=== PATIENT | female | born 1990 | race Caucasian/White ===

== ENCOUNTER 2017-08-29 22:37 | Inpatient (IN) | payer OTHER ==
[~2017-08-29] VITALS: Ht 165.1 cm; Wt 84.5 kg
[2017-08-30] MEDS ORDERED: ASMANEX HFA13 GM (00:33)
[2017-08-30] MEDS ORDERED: VENTOLIN HFA18 GM (00:33)
[2017-08-30] MEDS ORDERED: PROAIR HFA8.5 GM (00:34)
[2017-08-30] MEDS ORDERED: ADVIL200 M1 PO (00:34)
[2017-08-30] MEDS ORDERED: ALLEGRA ALLERG180 MG PO (00:35)
[2017-08-30] MEDS ORDERED: MELATONIN5 M2 PO (00:36)
[2017-08-30] MEDS ORDERED: NASAL SPRAY30 M1 NAS (00:36)
[2017-08-30] MEDS ORDERED: AFRIN15 ML (00:37)
[2017-08-30] MEDS ORDERED: EYE DROPS15 ML (00:38)
[2017-08-30] MEDS ORDERED: OPCON-A EYE DRO15 ML (00:38)
--- NOTE | 2017-08-30 01:45 | NUR ---
PT ARRIVED VIA STRETCHER DIRECT ADMIT FROM [place], TRANSPORTED VIA AMBULANCE. PT IS ALERT, COMPLAINS OF SEVERE HEADACHE AND LEG PAIN. LUNGS CLEAR, RA. HR REGULAR. BOWEL TONES ACTIVE, DENIES NAUSEA, STATES ABDOMEN IS TENDER. SKIN INTACT, STATES SHE HAS A RASH TO HER BACK, BUT I WAS UNABLE TO SEE IT. NEW 20G IV PLACED IN RIGHT WRIST, PT TOLERATED WELL. 1L LR BOLUS STARTED. CIWA: 15, 5MG PO VALIUM ADMINISTERED. PT INSTRUCTED TO USE CALL LIGHT, PT IS IN VIEW OF NURSES' STATION AND CALL LIGHT IS WITHIN REACH. PT APPLYING MAKEUP AND WATCHING TV, WILL CONTINUE TO MONITOR. DR. FAM IN TO ASSESS PT AND DISCUSS PLAN OF CARE.
--- NOTE | 2017-08-30 01:50 | NUR ---
PT ARRIVED VIA STRETCHER DIRECT ADMIT FROM [place], TRANSPORTED VIA AMBULANCE. PT IS ALERT, COMPLAINS OF SEVERE HEADACHE AND LEG PAIN. LUNGS CLEAR, RA. HR REGULAR. BOWEL TONES ACTIVE, DENIES NAUSEA, STATES ABDOMEN IS TENDER. SKIN INTACT, STATES SHE HAS A RASH TO HER BACK, BUT I WAS UNABLE TO SEE IT. NEW 20G IV PLACED IN RIGHT WRIST, PT TOLERATED WELL. 1L LR BOLUS STARTED. CIWA: 15, 5MG PO ATIVAN ADMINISTERED. PT INSTRUCTED TO USE CALL LIGHT, PT IS IN VIEW OF NURSES' STATION AND CALL LIGHT IS WITHIN REACH. PT APPLYING MAKEUP AND WATCHING TV, WILL CONTINUE TO MONITOR.
--- NOTE | 2017-08-30 02:39 | NUR ---
IN TO REASSESS PT AND SHE IS CURRENTLY SLEEPING, NO APPARENT DISTRESS. RR:19 SPO2: 92% ON RA. HR:91. WILL CONTINUE TO MONITOR.
--- NOTE | 2017-08-30 04:30 | NUR ---
PT CURRENTLY SLEEPING, NO APPARENT DISTRESS. RESPIRATIONS EVEN/UNLABORED, RRl 16 SPO2: 96% ON RA. HR: 80S. IV INFUSING WNL. WILL CONTINUE TO MONITOR.
--- NOTE | 2017-08-30 05:30 | NUR ---
LAB IN TO DRAW SAMPLE, PT WOKE VERY CONFUSED, DID NOT KNOW WHERE SHE WAS. CIWA: 19, PO VALIUM ADMINISTERED. ASSESSMENT COMPLETED. PT FORGETFUL, NEEDS FREQUENT REMINDERS OF WHERE SHE IS. REPORTS 4/10 PAIN IN LEGS AND HEADACHE. LUNGS REMAIN CLEAR, RA. HR REGULAR. BOWEL TONES ACTIVE, DENIES NAUSEA. IV INFUSING WNL. BED ALARM SET FOR SAFETY, WILL CONTINUE TO MONITOR.
--- NOTE | 2017-08-30 06:00 | NUR ---
PT ANXIOUS, TRYING TO EXIT BED STATING "I NEED TO GET MY SON." REASSURED PT THAT HER SON IS WITH HER MOM, PER WHAT SHE TOLD ME LAST NIGHT. CIWA:16, IV VALIUM GIVEN. WILL CONTINUE TO MONITOR. BED ALARM ON FOR SAFETY.
--- NOTE | 2017-08-30 06:04 | NUR ---
PT ANXIOUS, TRYING TO EXIT BED STATING "I NEED TO GET MY SON." REASSURED PT THAT HER SON IS WITH HER MOM, PER WHAT SHE TOLD ME LAST NIGHT. CIWA:16, IV ATIVAN GIVEN. WILL CONTINUE TO MONITOR.
--- NOTE | 2017-08-30 07:05 | NUR ---
REASSESSED PT, CIWA: 13, PO VALIUM ADMINISTERED.
--- NOTE | 2017-08-30 07:40 | NUR ---
PT AWAKENED YELLING AND THASING IN BED, STATES "BUGS ARE CRAWELING ON ME" PT MEDICATED WITH 5MG VALIUM IV AT THIS TIME. DR FAM NOTIFIED ALSO. NO NEW ORDERS.
--- NOTE | 2017-08-30 08:03 | NUR ---
PT DOES NOT LIKE THE BLOOD PRESSURE NOW C/O NAUSEA MEDICATED WITH 4MG ZOFRAN. PT VERY TEARFUL AT THIS TIME.
--- NOTE | 2017-08-30 08:29 | NUR ---
PT TALKING ON PERSONAL CELL PHONE AT THIS TIME, REMAINS VERY TEARFUL, AND UPSET WITH THIS PROCESS. SHE STATES SHE HAS BEEN DRINIKNG A FIFTH A DAY FOR THE LAST TWO YEARS. SHE JUST MOVED TO HER CURRENT RESIDENTS FROM [facility]. SHE WANTS TO GO SEE HER SON WHO IS CURRENTLY WITH HER MOTHER. UNSURE WHERE THAT IS THOUGH.
--- NOTE | 2017-08-30 09:05 | NUR ---
PT UP TO THE BATHROOM AT THIS TIME. AMBULATES WELL, STAFF TO MANGE IV LINES AND OTHER CORDS. PT AMBULATED IN THE UNIT TO ROOM 126 TO ROOM 130 AND BACK TO HER ROOM. SOME BROTH GIVEN TO PT TO SIP ON ALSO AT THIS TIME. BED ALARM INPLACE.
--- NOTE | 2017-08-30 09:18 | NUR ---
PT BACK TO BED DRINKING BROTH AT THIS TIME. AT TIMES APPEARS TO BE CRYING, BUT THEN WILL CHANGE THE SUBJECT AND START TALKING ABOUT SOMETHING ELSE.
--- NOTE | 2017-08-30 09:56 | NUR ---
PT MEDICATED WITH 650MG TYLENOL FOR BURNS 8 AT THIS TIME. PT TRYING TO SLEEP.
--- NOTE | 2017-08-30 10:30 | NUR ---
SPOKE WITH PATIENT IN ROOM. PATIENT AWAKE, USING CELL PHONE. PATIENT IS VISIBLY SHAKEY. PATIENT STATES SHE WAS IN MENTAL HEALTH TREATMENT DUE TO SELF HARM THOUGHTS. SHE STATES SHE MIGHT HAVE TO GO TO [place], BUT IS UNSURE WHERE SHE WILL BE GOING NEXT.
--- NOTE | 2017-08-30 10:35 | NUR ---
pt sleeping at this time.
--- NOTE | 2017-08-30 11:00 | NUR ---
PT REMAINS ASLEEP AT THIS TIME, AWAKES WITH STARTLE REFLEXS WHEN STAFF ENTER THE ROOM.
--- NOTE | 2017-08-30 11:24 | NUR ---
pt up to the bathroom understeady on her feet, two person assistance, back to bed with one paerson assistance. 5mg po valium given for withdrawel symptoms.
--- NOTE | 2017-08-30 11:27 | NUR ---
DR FAM NOTIFIED OF INCREASED SWELLING OF FACE AND HANDS R/T IV FLUIDS. NEW ORDER TO DECREASE FLUIDS TO 65MLS/HR AT THIS TIME.
--- NOTE | 2017-08-30 11:55 | NUR ---
PT ASLEEP AWAKENS WHEN SPOKEN TOO, ASSESSMENT COMPLETED AT THIS TIME SIDE RAILS X 2, BED ALARM ON, ACROSS FROM NURSES STATION.
--- NOTE | 2017-08-30 12:28 | NUR ---
PT IS C/O ABD CRAMPING AT THIS TIME TEARFULL ALSO AT THIS TIME. OFFERED BROTH AND SOME JELLO AT THIS TIME. PT SITTING UP IN BED TRYING TO EAT AT THIS TIME. HEART RATE DOES INCREASE WITH ACTIVITY.
--- NOTE | 2017-08-30 12:39 | NUR ---
PT REMAINS TEARFUL AND HAVING INCREASED ANXIETY AT THIS TIME. MEDICATED WITH 5MG PO VALIUM AND 400MG ADIVL FOR BURNS. PT SITTING UP IN BED AT THIS TIME.
--- NOTE | 2017-08-30 12:59 | NUR ---
PT UP IN ROOM CRYING, STATES "CANT YOU JUST GIVE ME SOME MEDICATION TO PUT ME TO SLEEP THROUGH THIS." DR FAM CALLED AND TO ROOM.
--- NOTE | 2017-08-30 13:18 | NUR ---
DR FAM INTO SEE PT DUE TO INCREASED ANXIETY. NEW ORDERS, PT UP TO THE BATHROOM VOIDED AND BACK TO BED. PT THEN MEDICATED WITH VALIUM 20MG IVP AT THIS TIME. PT HAS SETTLED DOWN, TALKING WITH PATHOLOGY TECHNOLOGIST ABOUT SON AND WITHDRAWEL. "I WANT TO SEE MY SON, I WAN TO HOLD HIM" ASKED HER IF IT IS GOOD FOR HIM TO SEE HER LIKE THIS? "NO PROBLE NOT" ASKED IF SHE WOULD STAY AND LET US HELP HER GET THROUGH THIS. 13:21 PT HAS STOPED CRYING AND APPEARS MORE RELAXED. HEART RATE HAS DECREASED INTO 80-90'S AND O2 SAT'S 95% AT THIS TIME ON ROOM AIR. PT SORRY FOR BEING DIFFECULT, EXPLAINED THAT IT IS THE PROCESS AND SHE IS JUST FINE. 13:22 PT APPEARS TO BE SETTLED DOWN AND RESTING IN BED WITH HER EYES CLOSED.
--- NOTE | 2017-08-30 14:22 | NUR ---
AFTER VISITING WITH ARLYN YAÑEZ, WE FELT IT BEST TO LET PT SLEEP. SHE IS STRUGGLING NOW-REST IS HELPFUL GOD BLESS HER
--- NOTE | 2017-08-30 14:28 | NUR ---
PT UP TO THE BATHROOM AT THIS TIME VOID AND THEN BACK TO BED. PT BURNS HAS DECREASED AND LESS ANXIETY NOTED AT THIS TIME. HEART RATE REMAINS IN THE 80'S AT THIS TIME. PT TALKING ABOUT SMOKING, ENCOURAGE TO RELAX AND THAT SHE IS WEARING A PATCH.
--- NOTE | 2017-08-30 14:41 | NUR ---
PT IN BED TEXTING ON HER PERSONAL PHONE AT THIS TIME.
--- NOTE | 2017-08-30 16:30 | NUR ---
pt talking on phone to family at this time, she appears to have less anxiety at this time, and is able to hold it together. no crying or hyperventalation noted after the phone call. Pt was given jello, chicken broth and some diet lemon [place] soda also at this time.
--- NOTE | 2017-08-30 17:07 | NUR ---
PT UP TO BATHROOM AMBULATED WELL, SPONGE BATH COMPLETED WITH ORAL CARE. PT ABLE TO CARE ON HER OWN. LINE CHANGED AND FRESH GROWN INPLACE.
--- NOTE | 2017-08-30 17:37 | NUR ---
PT CONTIOUES TO BE TEARFUL AT TIMES, WANTS TO SEE HER SON. BUT WHEN STAFF TALK WITH HER SHE DOES BETTER AND UNDERSTANDS HER COURSE OF [place]. SITTING UP IN BED WATCHING TV AT THIS TIME, CONTIOUES TO BE WORKING ON HER DRINKS.
--- NOTE | 2017-08-30 18:15 | NUR ---
pt contioues to c/o dukes, and leg cramping. advil 400mg po given for this pain. pt has placed fresh make-up to face at this time. pt appears to be relaxed at this time.
--- NOTE | 2017-08-30 18:47 | NUR ---
PT C/O LEGS HURTING, BUT NOT CRAMPING PLACED SCD'S ON BOTH LEGS TO SEE IF THIS WOULD HELP. PT IS TIRED, BUT DOING BETTER WITH THE HOSPITAL ROUTINE. SHE IS COOPERATIVE WITH STAFF AND ALL THE LINES AND TUBES. SHE HAS HAD A FAIR DAY TODAY.
--- NOTE | 2017-08-30 19:18 | NUR ---
pt up to the bathroom voided and back to bed. scd's inplace pt feels they help with her leg pain. Pt tearful also at this time.
--- NOTE | 2017-08-30 20:01 | NUR ---
PT SITTING UP IN BED, TEARFUL, APPEARS ANXIOUS. REPORTS 9/10 HEADACHE AND GENERALIZED PAIN, PRN TYLENOL ADMINISTERED. CIWA: 17, SCHEDULED IV VALIUM ADMINISTERED. LUNGS CLEAR, RA. HR REGULAR. BOWEL TONES ACTIVE, REPORTS MILD TENDERNESS IN ABDOMEN, DENIES NAUSEA. SKIN INTACT, REPORTS ITCHING, NO RASH OBSERVED. CMS INTACT, DENIES NUMBNESS. GENERALIZED EDEMA PRESENT IN FACE, HANDS, AND FEET. SCD'S IN PLACE. IV X2, PATENT. VSS. CHICKEN BROTH PROVIDED PER REQUEST. CALL LIGHT IS WITHIN REACH, PT IN VIEW OF NURSES' STATION. WILL CONTINUE TO MONITOR.
--- NOTE | 2017-08-30 20:58 | NUR ---
PT REQUESTED TO SHOWER, SALINE LOCKED AND COVERED IV SITES. PT SHOWERED AND RETURNED TO ROOM. ASKS IF SHE FEELS BETTER, SHE STATES "NO, I JUST FEEL CLEAN." VSS. CIWA:15. 10MG IV VALIUM ADMINISTERED. PT RESTING IN BED WATCHING TV. WILL CONTINUE TO MONITOR.
--- NOTE | 2017-08-30 21:20 | NUR ---
PATIENT UP PACING IN ROOM AND WANTING A CIGARETTE. PATIENT WANTING TO GO OUTSIDE AND SMOKE. PT VERY TEARFUL. PT'S HEART RATE UP TO 120s. PT PULLING SCDs OFF. PATIENT AGREEABLE THROUGH SOME MORE COMMUNICATION TO TAKE A LOZENGE. PT DISLIKES THE TASTE OF THESE LOZENGES. PATIENT GIVEN 10 MG IV VALIUM PER CIWA SCALE. CONTINUE TO MONITOR.
--- NOTE | 2017-08-30 21:50 | NUR ---
PT CONTINUES TO APPEAR AGITATED, TEARFUL. WANTS TO GO OUTSIDE FOR A CIGARETTE. CIWA: 23, 10MG IV VALIUM ADMINISTERED PER ORDER. PRN COMPAZINE GIVEN FOR ABDOMINAL DISCOMFORT. DR. FAM CALLED AND UPDATED ON PT'S INCREASED AGITATION. NEW ORDERS ENTERED BY DR. FAM. ONE TIME DOSE OF 130MG IV PHENOBARBITAL ADMINISTERED PER ORDER. PT NOW SLEEPING, RESPIRATIONS EVEN/UNLABORED, RR:18. IV IN RIGHT WRIST APPEARED SWOLLEN, D/C'D, CATHETER TIP INTACT. NEW 20G IV PLACED IN RIGHT FOREARM BY ARLYN RYDER, PT SLEEPING, WOKE AND SAID "OUCH!" WHEN PUNCTURED WITH NEEDLE, THEN RETURNED TO SLEEP. PT CONTINUES TO REST COMFORTABLY, WILL CONTINUE TO MONITOR.
--- NOTE | 2017-08-30 23:23 | NUR ---
PT CONTINUES TO REST COMFORTABLY. RESPIRATIONS EVEN AND UNLABORED, RR:22, SPO2:96% ON RA. HR:80. WILL CONTINUE TO MONITOR.
--- NOTE | 2017-08-31 00:10 | NUR ---
PT SLEEPING, RASS: -3. LUNGS CLEAR, RA. HR REGULAR. IV INFUSING WNL. WILL CONTINUE TO MONITOR.
--- NOTE | 2017-08-31 02:00 | NUR ---
RASS: -3. SCHEDULED VALIUM AND PHENOBARBITAL HELD AT THIS TIME. RESPIRATIONS EVEN AND UNLABORED, RR: 20. WILL CONTINUE TO MONITOR.
--- NOTE | 2017-08-31 04:29 | NUR ---
PT WOKEN UP SO THAT SHE COULD TRY TO VOID SINCE SHE HAS NOT GONE SINCE THE START OF SHIFT. PT WOKE EASILY, CONFUSED ABOUT WHERE SHE IS. AMBULATED TO BATHROOM AFTER SOME ENCOURAGEMENT TO GET UP. VOIDED 350ML OF CONCENTRATED URINE AND RETURNED TO BED. PT APPEARS ANXIOUS, REPORTS 5/10 HEADACHE, PRN ADVIL GIVEN. RASS: +1, PRN PHENOBARBITAL GIVEN PER ORDER. ASSESSMENT COMPLETED. LUNGS CLEAR, RA. HR REGULAR. PT DENIES NAUSEA. IV INFUSING WNL. WILL CONTINUE TO MONITOR.
--- NOTE | 2017-08-31 06:23 | NUR ---
PT SLEEPING, NO APPARENT DISTRESS. RESPIRATIONS EVEN/UNLABORED, RR:13. SPO2:98% ON RA. HR:72. WILL CONTINUE TO MONITOR.
--- NOTE | 2017-08-31 08:17 | NUR ---
PT AWAKE AND ALERT. VITAL SIGNS AND ASSESSMENT COMPLETED. PT C/O OF HEADACHE AND GENERALIZED DISCOMFORT. STATES "MY BODY HURTS ALL OVER". PT REFUSED TYLENOL FOR HER HEADACHE STATES "IT WILL NOT WORK FOR ME". PT WATCHING TV AND TEXTING ON HER PHONE.
--- NOTE | 2017-08-31 09:00 | NUR ---
PT AMBULATED TO BATHROOM WITH MINIMAL ASSIST. VOIDED BUT MISSED THE HAT, UNABLE TO MEASURE AT THIS TIME. PT RETUNED TO BED WITH HOB ELEVATED.
--- NOTE | 2017-08-31 09:10 | NUR ---
PT TAKING SMALL AMOUNTS OF CLEAR LIQ DIET. STATES "THIS TASTES LIKE CRAP".
--- NOTE | 2017-08-31 10:24 | NUR ---
DR. FAM IN TO ASSESS PT, PT STATES "I WANT TO HAVE A CIGARETTE, I DON'T CARE IF YOU DON'T WANT ME TO, I WILL HAVE ONE". DR. FAM TRIED SEVERAL TIMES TO EXPLAIN WHY PT CAN NOT SMOKE IN THE HOSPITAL BUT PT REFUSED TO TAKE THIS FOR AN ANSWER. PT STATES "YOU'D BETTER GIVE ME SOMETHING OR I WILL GO OFF." PT ALSO STATES "I WANT FOOD AND I WANT A CIGARETTE!" PT CRYING AND MEDICATED WITH VALIUM 20 MG IV. AimWith NOTIFIED AND LUNG GUN OPERATOR WILL BE HERE TO EVALUATE PT.
--- NOTE | 2017-08-31 10:51 | NUR ---
COMPUTER PUBLISHER CALLED AND WILL BE IN WITHIN AN HOUR.
--- NOTE | 2017-08-31 10:53 | NUR ---
LUNCH GIVEN TO PT BUT SHE REFUSED TO EAT. STATES "THAT LOOKS LIKE SOMETHING I SHIT." LUNCH TRY REMOVED.
--- NOTE | 2017-08-31 11:40 | NUR ---
JAVA TECHNICAL ARCHITECT AALIYAH HERE TO EVALUATE PT.
--- NOTE | 2017-08-31 12:19 | NUR ---
PT WITH INCREASED ANXIETY, CRYING AND PACING THE FLOOR,MANAGER CUSTOMER SERVICE WITH PT. MEDICATED WITH VALIUM 20 MG IV. MANAGER CUSTOMER SERVICE FROM [facility] CALLED TO TALK TO PT.
--- NOTE | 2017-08-31 12:51 | NUR ---
PT CONTINUES TO PACE THE FLOOR.
--- NOTE | 2017-08-31 13:29 | NUR ---
DISCHARGE INSTRUCTIONS GIVEN. PT REFUSED TO SIGN THAT DISCHARGE PAPERS WERE GIVEN. IV'S DC'D WITH CATHETERS INTACT. PT DRESSING SELF. BISCUIT FACTORY WORKER AWARE THAT PT IS DISCHARGED.
--- NOTE | 2017-08-31 13:54 | NUR ---
PT DISCHARGED WITH BELONGINGS AND AMBULATED WITH WOOD CUT ENGRAVER TO LOBBY TO WAIT FOR HER RIDE.
--- NOTE | 2017-08-31 16:40 | NUR ---
AFTER PT DISCHARGED FROM THE HOSPITAL IN CARE OF [facility] PROVIDER, PT LEFT FACILTIY. [facility] PROVIDER, AALIYAH, CALLED POLICE. POLICE BROUGHT PT BACK TO HOSPITAL, PT IN HANDCUFFS IN PARKING LOT. PT RELEASED FROM HANDCUFFS AND WHEN [place] INSPECTOR ASKED HER TO REMAIN RESPECTFUL, PATIENT STATES, "ARE YOU GOING TO BE A FUCKING MARCIE." [place] INSPECTOR REMAINED CALM AND SPOKE WITH HER UNTIL [facility] PROVIDER RETURNED. PLAN WAS MADE FOR CARE OF PT TO BE TAKEN OVER BY [facility], AND FOR PT TO CHECK BACK INTO ER FOR MEDICAL SCREEN. PT IS UNCOOPERATIVE WITH STAFF AND POLICE. PTS FAMILY ARRIVED ON SCENE, WELL PTS SON, AT WHICH TIME PT BECAME MUCH LESS AGITATED. PT CURRENTLY IN QUIET ROOM OF HOSPITAL WITH CAHRU SEQUEIRA FROM [facility]. PLEASE SEE ER CHARTING FOR FURTHER CARE OF PT.
== END 2017-08-31 13:35 | disposition home or self-care (01) | DRG 897 ==
LOC: CCU 22:37
PROVIDERS: ADMIT Internal Medicine
DX: F10.230 Alcohol dependence with withdrawal, uncomplicated (principal); F41.9 Anxiety disorder, unspecified; F32.9 Major depressive disorder, single episode, unspecified; Z91.5 Personal history of self-harm; F17.210 Nicotine dependence, cigarettes, uncomplicated
CPT/HCPCS: 36415; 80048; 83735; 90674; G0008; J0780; J2405; J2560; J3360; J7120

== ENCOUNTER 2017-08-31 17:21 | Emergency (ER) | payer OTHER ==
[~2017-08-31] VITALS: Ht 165.1 cm; Wt 81.7 kg
[~2017-08-31 17:21] MED LIST: ADVIL200 M1 PO; AFRIN15 ML; ALLEGRA ALLERG180 MG PO; ASMANEX HFA13 GM; EYE DROPS15 ML; MELATONIN5 M2 PO; NASAL SPRAY30 M1 NAS; OPCON-A EYE DRO15 ML; PROAIR HFA8.5 GM; VENTOLIN HFA18 GM
--- NOTE | 2017-09-02 00:37 | EKG ---
[facility] [address] [place] [address] Signed Normal sinus rhythm Normal ECG No previous ECGs available Confirmed by ELBERT FAM MD ([id number]) on 09/02/2017 12:37:00 AM Electronically Signed By: ELBERT FAM MD 09/02/17 0037 PATIENT NAME: SULEMA BALDWIN Electrocardiogram DATE OF : 86 PHYSICIAN: ELBERT FAM MD REPORT #: [id number] REPORT IS CONFIDENTIAL AND NOT TO BE RELEASED WITHOUT AUTHORIZATION
== END 2017-09-02 16:42 ==
LOC: ED 17:21
DX: F32.9 Major depressive disorder, single episode, unspecified (principal); F10.239 Alcohol dependence with withdrawal, unspecified; F17.200 Nicotine dependence, unspecified, uncomplicated; Z79.899 Other long term (current) drug therapy; Y90.0 Blood alcohol level of less than 20 mg/100 ml
CPT/HCPCS: 73110; 80053; 80176; 81001; 84443; 84703; 85025; 93005; 93010; 96372; 99285; G0480; J1630; J2060